=== PATIENT | female | born 1965 | race Caucasian/White ===

== ENCOUNTER 2023-07-25 15:28 | Emergency (ER) | payer MEDICAID ==
[~2023-07-25] VITALS: Ht 157.5 cm; Wt 82.6 kg
[2023-07-25 15:33] VITALS: BP 120/62; PULSE 84; RESP 18; TEMP 98.7; O2SAT 98
[2023-07-25 16:00] VITALS: O2SAT 98
[2023-07-25 16:33] LABS: BASOPHILS % (AUTO) 0.6 % (0.0-2.0); EOSINOPHILS # (AUTO) 0.1 K/uL (0-0.4); EOSINOPHILS % (AUTO) 1.3 % (0.0-4.0); HEMATOCRIT 35.8 % (36-48); HEMOGLOBIN 12.2 g/dL (12.0-16.0); LYMPHOCYTES # (AUTO) 0.9 K/uL (2.5-16.5); LYMPHOCYTES % (AUTO) 13.8 % (20.5-51.1); MEAN CORPUSCULAR HEMOGLOBIN 30 pg (27-31); MEAN CORPUSCULAR HGB CONC 34 g/dL (33-37); MEAN CORPUSCULAR VOLUME 89.3 fL (80-94); MONOCYTES # (AUTO) 0.4 K/uL (0.8-1.0); MONOCYTES % (AUTO) 5.5 % (1.7-9.3); NEUTROPHILS # (AUTO) 5.3 K/uL (1.8-7.7); NEUTROPHILS % (AUTO) 78.8 % (42.2-75.2); PLATELET COUNT (AUTO) 236 K/uL (140-450); RED BLOOD CELL COUNT(AUTO) 4.01 MIL/uL (4.20-5.40); RED CELL DISTRIBUTION WIDTH 13.4 % (11.6-13.7); WHITE BLOOD COUNT (AUTO) 6.8 K/uL (4.8-10.8)
[2023-07-25 16:46] LABS: ALBUMIN 3.1 g/dL (3.4-5.0); ANION GAP 9.1 (8-16); CALCIUM 8.7 mg/dL (8.5-10.1); CARBON DIOXIDE 29.3 mmol/L (21-32); CREATININE 0.7 mg/dL (0.6-1.3); POTASSIUM 4.4 mmol/L (3.5-5.1); TOTAL BILIRUBIN 0.3 mg/dL (0.0-1.0); TOTAL PROTEIN, SERUM 7.5 g/dL (6.4-8.2)
[2023-07-25] MEDS ORDERED: POLY17PD72 PO (18:04)
[2023-07-25] MEDS ORDERED: IBUP-2216 PO (18:04)
[2023-07-25] MEDS ORDERED: DOCU-300 PO (18:04)
[2023-07-25] MEDS ORDERED: AMOX-1230 PO (18:06)
[2023-07-25 18:53] VITALS: BP 120/62; PULSE 84; RESP 18; TEMP 98.7; O2SAT 98
== END 2023-07-25 18:59 | disposition home or self-care (01) ==
LOC: MED 15:28
DX: R10.9 Unspecified abdominal pain (principal); K59.00 Constipation, unspecified; Z79.899 Other long term (current) drug therapy
CPT/HCPCS: 36415; 80053; 81025; 83690; 85025; 99285